=== PATIENT | female | born 1965 | race Hispanic/Latino ===

== ENCOUNTER 2021-09-29 11:23 | Outpatient (CLI) | payer BC | END 2021-09-29 11:24 | disposition home or self-care (01) | LOC: CSHRAD 11:23 | PROVIDERS: ATTEND Family Medicine | DX: S59.801A Other specified injuries of right elbow, initial encounter (principal); S69.81XA Other specified injuries of right wrist, hand and finger(s), initial encounter; W19.XXXA Unspecified fall, initial encounter ==